=== PATIENT | female | born 1990 | race American Indian/Alaskan Native ===

== ENCOUNTER 2017-04-02 11:21 | Emergency (ER) | payer MEDICAID ==
[2017-04-02 11:41] VITALS: BP 121/82
[2017-04-02] MEDS ORDERED: TORADOL IM ONE (12:19)
[2017-04-02] MEDS ORDERED: CLEOCIN PO ONE (12:19)
[2017-04-02] MEDS ORDERED: NORCO 5/325 PO ONE (12:19)
--- NOTE | 2017-04-02 12:24 | Emergency Department Report ---
ED ENT HPI - General Chief complaint: Dental/Oral Stated complaint: TOOTH PAIN Time Seen by Provider: 04/02/17 12:13 Source: patient Mode of arrival: Ambulatory Limitations: No Limitations - History of Present Illness MD complaint: tooth pain -: Sudden, days(s) Location: other (L UPPER MOLAR) Severity: moderate Quality: crushing Consistency: constant Improves with: none Worsens with: eating Context- Dental: history of dental caries Associated Symptoms: gum swelling, toothache. denies: fever, cough, pain with swallowing, sore throat, tinnitus, hearing loss, discharge from ear, rhinorrhea - Related Data Previous Rx's Medication Instructions Recorded Last Taken Type Clindamycin [Clindamycin CAP] 300 mg PO Q8H #30 cap 04/02/17 Unknown Rx metroNIDAZOLE [Flagyl] 500 mg PO Q12HR #14 tab 04/02/17 Unknown Rx traMADol [Ultram] 50 mg PO Q6HR PRN #12 tablet 04/02/17 Unknown Rx Allergies Allergy/AdvReac Type Severity Reaction Status Date / Time amoxicillin Allergy Unknown Itching Verified 04/02/17 11:38 ED Dental HPI - General Chief complaint: Dental/Oral Stated complaint: TOOTH PAIN Time Seen by Provider: 04/02/17 12:13 Source: patient Mode of arrival: Ambulatory Limitations: No Limitations - Related Data Previous Rx's Medication Instructions Recorded Last Taken Type Clindamycin [Clindamycin CAP] 300 mg PO Q8H #30 cap 04/02/17 Unknown Rx metroNIDAZOLE [Flagyl] 500 mg PO Q12HR #14 tab 04/02/17 Unknown Rx traMADol [Ultram] 50 mg PO Q6HR PRN #12 tablet 04/02/17 Unknown Rx Allergies Allergy/AdvReac Type Severity Reaction Status Date / Time amoxicillin Allergy Unknown Itching Verified 04/02/17 11:38 ED Review of Systems ROS: Stated complaint: TOOTH PAIN Other details as noted in HPI Comment: All other systems reviewed and negative ENT: dental pain ED Past Medical Hx - Past Medical History Hx Hypertension: No Hx Diabetes: No Hx Deep Vein Thrombosis: No Hx Renal Disease: No Hx Sickle Cell Disease: No Hx Seizures: No Hx Asthma: No Hx HIV: No Additional medical history: NEUROPATHY - Surgical History Past Surgical History?: No - Social History Smoking Status: Never Smoker Substance Use Type: None - Medications Home Medications: Home Medications Medication Instructions Recorded Confirmed Last Taken Type Clindamycin [Clindamycin CAP] 300 mg PO Q8H #30 cap 04/02/17 Unknown Rx metroNIDAZOLE [Flagyl] 500 mg PO Q12HR #14 tab 04/02/17 Unknown Rx traMADol [Ultram] 50 mg PO Q6HR PRN #12 tablet 04/02/17 Unknown Rx ED Physical Exam - General Limitations: No Limitations General appearance: alert - Head Head exam: Present: atraumatic - Eye Eye exam: Present: PERRL - ENT ENT exam: Present: mucous membranes moist - Expanded ENT Exam Expanded Teeth exam: Present: dental caries 1 - Other (CARIES) - Neck Neck exam: Present: normal inspection. Absent: meningismus - Expanded Neck Exam Expanded Neck exam: Present: midline deformity. Absent: anterior neck swelling, thyroid mass, carotid bruit, tracheal deviation - Respiratory Respiratory exam: Present: normal lung sounds bilaterally - Cardiovascular Cardiovascular Exam: Present: regular rate - GI/Abdominal GI/Abdominal exam: Present: soft - Extremities Exam Extremities exam: Present: normal inspection - Back Exam Back exam: Present: normal inspection - Neurological Exam Neurological exam: Present: alert, oriented X3, CN II-XII intact, normal gait - Psychiatric Psychiatric exam: Present: normal affect, normal mood - Skin Skin exam: Present: warm, dry, intact ED Course Vital Signs 04/02/17 11:38 Temperature 98.3 F Pulse Rate 91 H Respiratory 0 L Rate Blood Pressure 121/82 O2 Sat by Pulse 100 Oximetry - Reevaluation(s) Reevaluation #1: 04/02/17 12:22 TO ER W L UPPER DENTAL PAIN CARIES NOTED NO ABSCESS TAKING PO NO ANDERSON. NO LUDWIGS VSS NO FEVER RR 18 EDUCATED ON DENTAL CARE NON TOXIC MEDICATED AND DC HOME W DC POC Critical care attestation.: If time is entered above; I have spent that time in minutes in the direct care of this critically ill patient, excluding procedure time. ED Disposition Clinical Impression: Dental caries, Pain, dental Disposition: DC-01 TO HOME OR SELFCARE Is pt being admited?: No Does the pt Need Aspirin: No Condition: Stable Instructions: Dental Caries (ED) Additional Instructions: DMD SHU MEDS ORDERED TODAY Referrals: PRIMARY CARE, [Primary Care Provider] - 3-5 Days [facility] [Outside] - 3-5 Days Time of Disposition: 12:21
== END 2017-04-02 12:36 | disposition home or self-care (01) ==
LOC: ED 11:21
DX: K02.9 Dental caries, unspecified (principal); Z88.1 Allergy status to other antibiotic agents
CPT/HCPCS: 96372; 99282; J1885

== ENCOUNTER 2017-05-10 11:43 | Emergency (ER) | payer MEDICAID | END 2017-05-10 12:15 | disposition left against medical advice (07) | LOC: ED 11:43 | DX: O26.891 Other specified pregnancy related conditions, first trimester (principal); R10.9 Unspecified abdominal pain; Z53.21 Procedure and treatment not carried out due to patient leaving prior to being seen by health care provider ==

== ENCOUNTER 2019-05-28 15:05 | Emergency (ER) | payer MEDICAID ==
[2019-05-28 15:52] VITALS: BP 127/92
--- NOTE | 2019-05-28 15:55 | Event Note ---
ED Screening Note ED Screening Note: bilateral lower dental pain that began yesterday states it hurts in her wisdom teeth states she saw a dentist 6 months ago, needs teeth pulled, but she was at that time and could not have the teeth pulled states she attempted to see the dentist today but had an issue with her insurance no n/v/d, no fever, no facial swelling no PMHx allergy: amoxicillin
--- NOTE | 2019-05-28 16:01 | Emergency Department Report ---
Chief Complaint: Dental/Oral Stated Complaint: TOOTH PAIN Time Seen by Provider: 05/28/19 15:50 - HPI History of Present Illness: pt is a 29 yo female who presents with bilateral upper dental pain that began yesterday states it hurts in her wisdom teeth states she saw a dentist 6 months ago, needs teeth pulled, but she was at that time and could not have the teeth pulled states she attempted to see the dentist today but had an issue with her insurance no n/v/d, no fever, no facial swelling no PMHx allergy: amoxicillin VSS on exam: Non toxic appearing, no acute distress atraumatic, normocephalic normal appearance of the eyes, EOMI, no periorbital edema or ecchymosis moist mucus membranes normal oropharynx, no tonsilar hypertrophy or exudates, cracked and decaying teeth present in the bilateral upper jaw line, no edema or induration of the gumline, no facial edema, uvula is midline, no uvular edema or deviation regular heart rate and rhythm, no gallops, no rubs, no murmurs breath sounds are clear bilaterally, no w/r/r A&O x4, no focal neuro deficit skin is warm, dry, intact Examination consistent with cracked teeth and dental caries No signs of dental abscess or facial cellulitis advised please take ibuprofen or tylenol as needed for pain. please follow up with a dentist. it is very important to follow up with a dentist. return to the emergency room immediately for any new or worsening symptoms. Medical screening examination performed there is no threat to life or limb at this time Discussed to follow-up with a dentist Discussed the importance of following up with a dentist Discussed strict return precautions - Exam Vital Signs: Vital Signs 05/28/19 15:50 Temperature 97.4 F L Pulse Rate 87 Respiratory 18 Rate Blood Pressure 127/92 O2 Sat by Pulse 99 Oximetry MSE screening note: Focused history and physical exam performed. ED Disposition for MSE Clinical Impression: Dental caries, Cracked tooth Disposition: Z-07 MED SCREENING EXAM-LEFT Is pt being admited?: No Does the pt Need Aspirin: No Condition: Stable Instructions: Dental Caries (ED) Additional Instructions: please take ibuprofen or tylenol as needed for pain. please follow up with a dentist. it is very important to follow up with a dentist. return to the emergency room immediately for any new or worsening symptoms. Referrals: [facility] [Outside] - 2-3 Days [facility] [Outside] - 2-3 Days Time of Disposition: 15:56 Print Language: [id number]
== END 2019-05-28 16:10 | disposition left against medical advice (07) ==
LOC: ED 15:05
DX: K02.9 Dental caries, unspecified (principal); K03.81 Cracked tooth; Z88.1 Allergy status to other antibiotic agents
CPT/HCPCS: 99281